=== PATIENT | female | born 1950 | race African-American/Black ===

== ENCOUNTER 2018-09-19 10:26 | Emergency (ER) | payer OTHER ==
[2018-09-19 10:39] VITALS: BP 101/56; PULSE 77; TEMP 98.1; BMI 35.5
--- NOTE | 2018-09-19 11:38 | PDOC ---
Attending Attestation - Resident Resident Name: Rekha Corona - ED Attending Attestation I have performed the following: I have examined & evaluated the patient, The case was reviewed & discussed with the resident, I agree w/resident's findings & plan - HPI HPI: 09/19/18 12:41 The patient is a 68 year old female, with a significant past medical history of recurrent UTI, HTN, and asthma, who presents to the emergency department with, nausea and vomiting. As per patient, she was recently diagnosed with the flu approximately 2 weeks ago which she believes she has not gotten over. Beginning yesterday, she notes she began feeling nausea with an associated 5 episodes of NBNB emesis over the past 24 hours. She endorses urinary/vaginal discomfort since being treated for a UTI recently. She denies recent fevers, chills, headache or dizziness. She denies recent diarrhea or constipation. She denies recent chest pain or shortness of breath. Allergies: Penicillins, quetiapine fumarate Primary Care Physician: Dr. Casillas <Jesus Posadas - Last Filed: 09/19/18 12:40> - Physicial Exam PE: 09/19/18 12:47 Agree with resident exam. Patient is alert and oriented and in no acute distress. Muccous membranes appear slightly dry. Abdomen non tender to deep palpation without guarding or rebound. - Medical Decision Making 09/19/18 12:48 Pt presents to the ED complaining of nausea and vomiting without abdominal pain. Abdomen is non tender. Differential includes UTI, viral gastroneteritis , less likely other intraabdominal pathology. Will check labs and give IV hydration and nausea control, reassess. <Yen Brown - Last Filed: 09/19/18 12:51> Attestations - Attestations 09/19/18 12:41 Documentation prepared by Jesus Posadas, acting as nurses medical assistants phlebotomists for Yen Brown MD. <Jesus Posadas - Last Filed: 09/19/18 12:40>
[2018-09-19] MEDS ORDERED: SODIUM CHLORIDE 0.9% 500 ML INFUS.BAG IV ONE (11:53)
[2018-09-19] MEDS ORDERED: ONDANSETRON 4 MG/2 ML VIAL IVPUSH ONE (11:53)
--- NOTE | 2018-09-19 12:03 | PDOC ---
History of Present Illness - General Chief Complaint: Nausea/Vomiting Stated Complaint: VOMITING, HEADACHE CHILLS Time Seen by Provider: 09/19/18 11:37 History Source: Patient Exam Limitations: No Limitations - History of Present Illness Initial Comments: 09/19/18 12:00 68 YOF with h/o recurrent UTI, HTN, and asthma who p/w malaise nausea, NBNB vomiting x5 episodes in the past 24h, cough, mild headache, and dehydration. She was diagnosed with influenza around Arlene time and never fully recovered , but she notes her symptoms are worse now than they have been for the past couple of weeks. She denies any fever, but has had chills over the past day. She additionally notes burning on urination for the past couple of days similar to her prior UTIs. Feels she has been unable to keep down any food or liquid, ate only a small croissant yesterday. Past History - Past Medical History Allergies/Adverse Reactions: Allergies Allergy/AdvReac Type Severity Reaction Status Date / Time No Known Allergies Allergy Verified 09/19/18 10:39 Home Medications: Ambulatory Orders Cephalexin Monohydrate [Keflex -] 500 mg PO BID #13 capsule 09/19/18 Montelukast Sodium [Singulair] 10 mg PO HS 09/19/18 Norvasc - 09/19/18 Olmesartan/Hydrochlorothiazide [Benicar Hct 40-25 mg Tablet] 1 each PO 09/19/18 Ondansetron [Zofran Odt -] 4 mg SL BID PRN #8 od.tablet 09/19/18 Asthma: Yes COPD: No HTN: Yes - Surgical History Cholecystectomy: No - Immunization History Immunization Up to Date: No - Suicide/Smoking/Psychosocial Hx Smoking History: Never smoked Have you smoked in the past 12 months: No Information on smoking cessation initiated: No Hx Alcohol Use: No Drug/Substance Use Hx: No Review of Systems - Review of Systems Able to Perform ROS?: Yes Comments:: 09/19/18 12:07 GEN: chills, malaise, generalized weakness, no fever, or weight change HEENT: no ear pain, sore throat, vision change, or eye pain CV: no chest pain, palpitations, lightheadedness, syncope, or edema RESP: cough, no wheezing, or SOB GI: nausea, vomiting, no abdominal pain, diarrhea, constipation, or white/black/ bloody stool : dysuria, no hematuria, incontinence, retention, bleeding, or discharge MSK: no neck/back pain, muscle weakness/pain, or joint swelling/pain NEURO: mild headache, no seizure, vertigo, numbness, tingling, or focal weakness PSYCH: no substance use, no behavior change SKIN: no jaundice, no rash ROS otherwise negative except as noted in HPI *Physical Exam - Vital Signs Last Vital Signs Temp Pulse Resp BP Pulse Ox 98.1 F 77 16 101/56 L 100 09/19/18 10:36 09/19/18 10:36 09/19/18 10:36 09/19/18 10:36 09/19/18 10:36 - Physical Exam Comments: 09/19/18 12:08 GENERAL: dehydrated but otherwise nontoxic-appearing, A/Ox4, no distress, answers questions appropriately HEENT: PERRLA, EOMI, dry mucous membranes with especially dry lips NECK/BACK: no midline ttp, no spinal stepoff or deformity, no hematoma, full ROM , neck supple CARDIOVASCULAR: regular rate/rhythm, normal S1S2, no MGR, strong peripheral pulses, capillary refill <2 seconds, extremities wwp, no edema LUNGS/RESPIRATORY: no respiratory distress, CTAB GI/ABDOMEN: symmetric [id number], normoactive BS, soft, no ttp, no midline pulsatile masses : no CVA tenderness EXTREMITIES: no muscle atrophy, no acute deformity, no edema SKIN: warm and dry, no pallor, no jaundice, no rash, no bruising, no skin breakdown, no cuts, no lesions NEUROLOGICAL: GCS 15, CN II-XII grossly intact, 5/5 strength proximally and distally, no facial droop Moderate Sedation - Procedure Monitoring Vital Signs: Procedure Monitoring Vital Signs Temperature 98.1 F 09/19/18 10:36 Pulse Rate 77 09/19/18 10:36 Respiratory Rate 16 09/19/18 10:36 Blood Pressure 101/56 L 09/19/18 10:36 O2 Sat by Pulse Oximetry (%) 100 09/19/18 10:36 ED Treatment Course - LABORATORY CBC & Chemistry Diagram: 09/19/18 12:25 09/19/18 12:25 - RADIOLOGY Radiology Studies Ordered: Category Date Time Status CXRPORT [CHEST X-RAY PORTABLE*] [RAD] Stat Radiology 09/19/18 11:53 Ordered Medical Decision Making - Medical Decision Making 09/19/18 12:10 Adult female patient with recent influenza p/w nausea, vomiting, malaise, chills , cough, mild VALLE. Initial Vital Signs Temp Pulse Resp BP Pulse Ox 98.1 F 77 16 101/56 L 100 09/19/18 10:36 09/19/18 10:36 09/19/18 10:36 09/19/18 10:36 09/19/18 10:36 Exam: As noted in Physical Exam section. DDX IBNLT: PNA, bronchitis, viral syndrome, continued course of influenza, etc. W/U ordered: Labs as noted below, CXR TX ordered: IVF, Zofran CXR: Labs: Reassessment: Repeat VS: ADMIT The Pt is unsafe for discharge at this time. They require further hospital observation, workup, and treatment. Microblog sent to [facility] for admission. Blank Decision to Admit order is placed per ED protocol. Spoke with admitting team licensing representative, in agreement Pt to be admitted. Decision to Admit order corrected with admitting team covering attendings name. Decision to Admit order placed to [facility] covering attending DISCHARGE This patient has gotten significant relief of symptoms while in the ED. On last reassessment, vitals are wnl, pain is reasonably controlled, and exam is benign. Workup is not concerning for emergency-level pathology at this time. This patient is appropriate for discharge with close outpatient follow up. They are comfortable with this plan and will follow up with their primary care provider in 1-3 days. Specific return precautions are discussed and they will come back to the ER if necessary. *DC/Admit/Observation/Transfer Diagnosis at time of Disposition: Vomiting Qualifiers: Vomiting type: unspecified Vomiting Intractability: non-intractable Nausea presence: with nausea Qualified Code(s): R11.2 - Nausea with vomiting, unspecified UTI (urinary tract infection) Qualifiers: Urinary tract infection type: acute cystitis Hematuria presence: without hematuria Qualified Code(s): N30.00 - Acute cystitis without hematuria - Discharge Dispostion Disposition: HOME Condition at time of disposition: Stable Decision to Admit order: No - Prescriptions Prescriptions: Cephalexin Monohydrate [Keflex -] 500 mg PO BID #13 capsule Ondansetron [Zofran Odt -] 4 mg SL BID PRN #8 od.tablet PRN Reason: Nausea And/Or Vomiting - Referrals Referrals: Eber Casillas MD [Primary Care Provider] - - Patient Instructions Printed Discharge Instructions: DI for Urinary Tract Infection (UTI) Additional Instructions: You were seen in the ER for painful urination, chills, nausea, and vomiting. We did blood and urine labs and you have a urinary tract infection, but there were no other abnormalities. After our assessment, we do not believe you are having a medical emergency at this time, and we believe you are safe to go home. 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 Take the thole course of antibiotics as prescribed, whether or not you feel better. Take the Zofran is you need it for nausea/vomiting. Please take over the counter pain medications for pain, following the instructions on the medication label. For painful urination, please take pyridium (azo) which you can get [id number] at the pharmacy. This will turn your urine orange and it is nothing to worry about while you are taking this medication. Follow up with your primary doctor in 1-3 days. We are giving you referral info for a new PCP in case you need one. Call their clinic [facility], tell them you were seen in the ER, and tell them you need an appointment. Please come back to the ER at any time, 24 hours a day, for any new or worsening symptoms, like worsened pain , increased or foul-smelling discharge, fever, or other symptoms. If you are having severe or life threatening symptoms, or symptoms that make it unsafe to drive or have someone drive you, please call 911. - Post Discharge Activity
[2018-09-19] MEDS ORDERED: ONDANSETRON 4 MG/2 ML VIAL ONE (12:20)
[2018-09-19 12:49] LABS: URINE APPEARANCE CLOUDY; URINE BILIRUBIN NEGATIVE (<2.0 mg/dL); URINE COLOR DKYELLOW; URINE GLUCOSE (UA) NEGATIVE (NEGATIVE); URINE KETONE NEGATIVE (NEGATIVE); URINE LEUK ESTERASE 3+ (NEGATIVE); URINE NITRITE NEGATIVE (NEGATIVE); URINE PROTEIN 1+ (NEGATIVE); URINE UROBILINOGEN NEGATIVE mg/dL (0.2-1.0)
[2018-09-19 12:52] LABS: BASO % 0.3 % (0-2.0); HEMOGLOBIN 12.4 GM/dL (10.7-15.3); LYMPH % 11.1 % (8-40); MCH 28.7 pg (25.7-33.7); MCHC 34.4 g/dl (32.0-36.0); MEAN CELL VOLUME 83.5 fl (80-96); MEAN PLT VOLUME 8.7 fl (7.5-11.1); MONO % 5.7 % (3.8-10.2); NEUT % 82.9 % (42.8-82.8); PLATELET COUNT 276 K/MM3 (134-434); RBC 4.31 M/mm3 (3.60-5.2); RDW 14.6 % (11.6-15.6); WHITE BLOOD COUNT 8.8 K/mm3 (4.0-10.0)
[2018-09-19 13:12] LABS: ALBUMIN 3.7 g/dl (3.4-5.0); ALK PHOS 82 U/L (45-117); ANION GAP 11 MMOL/L (8-16); BILIRUBIN,TOTAL 1.2 mg/dL (0.2-1); BLOOD UREA NITROGEN 28 mg/dL (7-18); CHLORIDE 106 mmol/L (98-107); CO2 24 mmol/L (21-32); CREATININE 1.1 mg/dL (0.55-1.3); GLUCOSE,RANDOM 111 mg/dL (74-106); LIPASE 75 U/L (73-393); MAGNESIUM 2.1 mg/dL (1.8-2.4); PHOSPHOROUS 3.2 mg/dL (2.5-4.9); POTASSIUM 4.1 mmol/L (3.5-5.1); SGOT/AST 12 U/L (15-37); SGPT/ALT 18 U/L (13-61); SODIUM 141 mmol/L (136-145); TOT PROT 8.4 g/dl (6.4-8.2)
[2018-09-19] MEDS ORDERED: CEPHALEXIN MONOHYDRATE 500 MG CAPSULE (UD) PO ONE (13:29)
[2018-09-19 13:46] LABS: EPI CELLS MANY /HPF (FEW); URINE BACTERIA MANY /hpf (NONE SEEN); URINE HYALINE CAST 2 /lpf; URINE MUCUS RARE
[2018-09-19] MEDS ORDERED: CEPHALEXIN MONOHYDRATE 500 MG CAPSULE (UD) ONE (14:10)
== END 2018-09-19 14:50 | disposition home or self-care (01) ==
LOC: JER 10:26
PROC: 3E033GC Introduction of Other Therapeutic Substance into Peripheral Vein, Percutaneous Approach (ICD-10-PCS; principal; 2018-09-19)
PROC: 3E0337Z Introduction of Electrolytic and Water Balance Substance into Peripheral Vein, Percutaneous Approach (ICD-10-PCS; 2018-09-19)
DX: R11.2 Nausea with vomiting, unspecified (principal); N30.00 Acute cystitis without hematuria
CPT/HCPCS: 36415; 71045-TC-FY; 80053; 81003; 81015; 83690; 83735; 84100; 85025; 87086; 87186; 99282-25

== ENCOUNTER 2022-01-23 12:13 | Emergency (ER) | payer OTHER ==
[2022-01-23 12:23] VITALS: BMI 39.4
[2022-01-23] MEDS ORDERED: ACETAMINOPHEN 1000 MG/100 ML BAG IVPB ONE (12:47)
[2022-01-23] MEDS ORDERED: FAMOTIDINE 20 MG/50 ML IVPB 20 MG/50 ML MG IVPB ONE (12:47)
[2022-01-23] MEDS ORDERED: ONDANSETRON 4 MG/2 ML VIAL IVPUSH ONE (12:47)
[2022-01-23] MEDS ORDERED: SODIUM CHLORIDE 0.9% 500 ML INFUS.BAG IV ONE (12:47)
[2022-01-23] MEDS ORDERED: ACETAMINOPHEN INJECTION 100 ML IVPB ONE (12:54)
[2022-01-23] MEDS ORDERED: FAMOTIDINE 10 MG/ML VIAL IVPB ONE (12:55)
[2022-01-23] MEDS ORDERED: ONDANSETRON 4 MG/2 ML VIAL ONE (12:55)
[2022-01-23 13:45] LABS: BASO % 0.5 % (0-2.0); EOS % 0.1 % (0-4.5); HEMATOCRIT 37.9 % (32.4-45.2); HEMOGLOBIN 12.2 GM/dL (10.7-15.3); LYMPH % 10.7 % (8-40); MCH 27.5 pg (25.7-33.7); MCHC 32.2 g/dl (32.0-36.0); MEAN CELL VOLUME 85.6 fl (80-96); MEAN PLT VOLUME 9.3 fl (7.5-11.1); MONO % 2.8 % (3.8-10.2); NEUT % 85.9 % (42.8-82.8); PLATELET COUNT 218 10^3/uL (134-434); RBC 4.43 M/mm3 (3.60-5.2); RDW 14.9 % (11.6-15.6); WHITE BLOOD COUNT 6.7 K/mm3 (4.0-10.0)
[2022-01-23 14:05] LABS: BLOOD UREA NITROGEN 18.6 mg/dL (7-18); CALCIUM 9.3 mg/dL (8.5-10.1)
[2022-01-23 14:06] LABS: ALBUMIN 3.7 g/dl (3.4-5.0); MAGNESIUM 2.1 mg/dL (1.8-2.4)
[2022-01-23 14:08] LABS: CREATININE 0.8 mg/dL (0.55-1.3)
[2022-01-23 14:09] LABS: PHOSPHOROUS 1.6 mg/dL (2.5-4.9)
[2022-01-23 14:10] LABS: BILIRUBIN,TOTAL 0.7 mg/dL (0.2-1); TOT PROT 7.6 g/dl (6.4-8.2)
[2022-01-23 14:49] LABS: EPI CELLS 19 /uL (0-25.1); HYALINE CASTS 10 /uL (0-3.1); PH,URINE 8.5 (5.0-8.0); URINE APPEARANCE CLOUDY; URINE BACTERIA >9,000 /uL (0-1359); URINE BILIRUBIN NEGATIVE (NEGATIVE); URINE COLOR YELLOW; URINE GLUCOSE (UA) NEGATIVE (NEGATIVE); URINE KETONE 1+ (NEGATIVE); URINE LEUK ESTERASE 3+ (NEGATIVE); URINE NITRITE NEGATIVE (NEGATIVE); URINE PROTEIN 1+ (NEGATIVE); URINE RBC 15 /uL (0-23.9); URINE UROBILINOGEN 0.2 mg/dL (0.2-1.0); URINE WBC 676 /uL (0-25.8)
[2022-01-23 15:46] VITALS: BP 123/63; PULSE 74; TEMP 98.2
== END 2022-01-23 15:55 | disposition home or self-care (01) ==
LOC: JER 12:13
PROC: 3E033GC Introduction of Other Therapeutic Substance into Peripheral Vein, Percutaneous Approach (ICD-10-PCS; principal; 2022-01-23)
DX: R11.10 Vomiting, unspecified (principal); R19.7 Diarrhea, unspecified
CPT/HCPCS: 0241U-QW; 36415; 80053; 81003; 83690; 83735; 84100; 84484; 85025; 87086; 87186; 93005; 93010; 96365; 96375; 99284-25

== ENCOUNTER 2023-04-21 14:27 | Emergency (ER) | payer OTHER ==
[2023-04-21 14:50] VITALS: BP 118/65; BMI 38.4
[2023-04-21] MEDS ORDERED: ACETAMINOPHEN 500 MG TABLET (FP) PO ONE (16:00)
[2023-04-21] MEDS ORDERED: ACETAMINOPHEN 500 MG TABLET (FP) ONE (16:01)
[2023-04-21 17:27] VITALS: PULSE 74; RESP 14; TEMP 98.1
== END 2023-04-21 17:27 | disposition home or self-care (01) ==
LOC: JER 14:27 → JERFT 14:27
DX: S46.911A Strain of unspecified muscle, fascia and tendon at shoulder and upper arm level, right arm, initial encounter (principal); W01.0XXA Fall on same level from slipping, tripping and stumbling without subsequent striking against object, initial encounter; Y93.01 Activity, walking, marching and hiking
CPT/HCPCS: 73030-TC-RT-FY; 99283-25